=== PATIENT | female | born 1990 | race Caucasian/White ===

== ENCOUNTER 2020-12-16 00:56 | Emergency (ER) | payer OTHER, MEDICAID, SELFPAY ==
[2020-12-16 01:08] VITALS: BP 131/87; PULSE 118; RESP 20; TEMP 36.2; O2SAT 100
[2020-12-16] MEDS: LIDO 1%/SOD BICARB 8.4% (10ML) 10 ML SYRINGE INJ (01:14)
--- NOTE | 2020-12-16 01:29 | ED_ITS ---
HPI - General Adult General Chief complaint: Skin/Abscess/Foreign Body Stated complaint: possible abcesses on upper left arm right wrist Time Seen by Provider: 12/16/20 00:58 Source: patient Mode of arrival: Ambulatory Limitations: no limitations History of Present Illness HPI narrative: Patient is a 30-year-old female. She admits to being an IV drug user. States that a couple days ago she when she tried to inject herself in her left arm. States since that she has had redness and swelling and discomfort. She has never had an abscess like this in the past she stated that at home she drained ?30 cc ?of purulent material out of the redness and swelling prior to arrival however she thinks that symptoms are worsening. She also has a similar but smaller abscess forming on her right forearm. She has not attempted to drain anything from this. She states that with these are from injecting heroin. Related Data Allergies Allergy/AdvReac Type Severity Reaction Status Date / Time No Known Drug Allergies Allergy Verified 12/16/20 01:14 Review of Systems Constitutional Constitutional: Denies fever(s) Cardiovascular Cardiovascular: Denies chest pain and Denies dyspnea Respiratory Respiratory: Denies dyspnea Gastrointestinal Gastrointestinal: Denies abdominal pain Musculoskeletal Musculoskeletal: Denies tingling Integumentary/Breasts Skin/Breast: Reports lesions and Reports erythema Neurologic Neurologic: Denies tingling Hematologic/Lymphatic On Anticoagulants: No Allergic/Immunologic Allergic/Immunologic: Denies urticaria Patient History Medical History IV drug abuse Social History Smoking Status: Former smoker Smoking Status: Former smoker Substance Use Type: heroin Exam Initial Vital Signs Initial Vital Signs: Vital Signs Temperature 97.1 F L 12/16/20 01:08 Pulse Rate 118 H 12/16/20 01:08 Respiratory Rate 20 12/16/20 01:08 Blood Pressure 131/87 12/16/20 01:08 Pulse Oximetry 100 12/16/20 01:08 Const General: cooperative Limitations: mental status not altered HENNM Head: normal to inspection and normocephalic Cardio Pulses: radial pulses present bilaterally Skin Other: Patient with a 1 cm x 2 cm abscess on the right forearm the distal l 1/3 without any surrounding erythema. Patient has a larger 5 cm x 5 cm area of redness and abscess on the left forearm on the proximal 1/3. Extrem General: capillary refill normal Procedures Abscess I/D I&D #1: Site: upper extremity Side (if applicable): right Local Anesthetic: lidocaine 1% and with bicarb Amount of anesthesia used (mL): 4 Technique: incised with #11 blade Irrigation: No Packing used?: none I&D #2: Site: upper extremity Side (if applicable): left Local Anesthetic: lidocaine 1% and with bicarb Amount of anesthesia used (mL): 6 Technique: incised with #11 blade Irrigation: No Packing used?: none Course Orders Ordered: Discontinued Medications Diphtheria/Tetanus/Acell Pertussis (Tet,Diph,Pertuss(Acell),Vac/Pf 0.5 Ml Syringe) 0.5 ml IM .ONCE ONE Stop: 12/16/20 01:31 Last Admin: 12/16/20 01:35 Dose: 0.5 ml Documented by: SHRUTHI Lidocaine/Sodium Bicarbonate (Lido 1%/Sod Bicarb 8.4% (10ml) 10 Ml Syringe) 10 ml INJ NOW ONE Stop: 12/16/20 01:07 Last Admin: 12/16/20 01:14 Dose: 10 ml Documented by: BRETT Vital Signs Vital signs: Vital Signs - 8 hr 12/16/20 01:08 12/16/20 01:49 Temperature 97.1 F L Pulse Rate 118 H 94 H Respiratory Rate 20 18 Blood Pressure 131/87 119/79 Pulse Oximetry 100 99 Medical Decision Making MDM Narrative Medical decision making narrative: Bedside ultrasound was used to confirm that both of the areas in question or abscesses. After anesthesia provided they both were drained with return of purulent material. There was no foreign bodies noted. There was minimal if any surrounding erythema from these abscesses so I feel that holding on antibiotics is warranted. Patient was given care instructions and return precautions. Patient not septic. Her tachycardia secondary to her anxiety related to the situation and she admits this. Her tetanus was also updated. Discharge Plan Departure Patient Disposition: Home Clinical Impression: Abscess of skin or subcutaneous tissue Instructions: DI for Incision and Drainage of a Skin Abscess, DI for Skin Abscess Activity Restrictions/Additional Instructions: Your tetanus shot was updated today. Expect oozing from the sites on both of your arms. This should improve over the next couple days. Keep it covered with a bandage as needed. You can shower like normal. You can use soap and water like normal. If you do not have a primary provider you can contact [phone]. This is the health resource conservation manager here at the hospital. Return to the emergency department for any new or worsening symptoms
[2020-12-16] MEDS: TET,DIPH,PERTUSS(ACELL),VAC/PF 0.5 ML SYRINGE IM (01:35)
[2020-12-16 01:49] VITALS: BP 119/79; PULSE 94; RESP 18; O2SAT 99
== END 2020-12-16 01:51 | disposition home or self-care (01) ==
PROVIDERS: Emergency Provider Emergency Medicine
DX: L02.414 Cutaneous abscess of left upper limb (principal); L02.413 Cutaneous abscess of right upper limb; Z23 Encounter for immunization; F19.10 Other psychoactive substance abuse, uncomplicated
CPT/HCPCS: 10061; 99281; 99283; 90715

== ENCOUNTER 2021-06-28 20:47 | Emergency (ER) | payer OTHER, MEDICAID, SELFPAY ==
[2021-06-28 21:04] VITALS: BP 135/86; PULSE 103; RESP 16; TEMP 36.7; O2SAT 100; BMI 25.0
[2021-06-29 01:30] VITALS: BP 137/87; PULSE 96; RESP 18; O2SAT 98
[2021-06-29] MEDS: CLINDAMYCIN 150 MG CAPSULE 300 MG PO (02:37)
[2021-06-29] MEDS: TRIMETH/SULFA 160/800 (DS) TABLET 1 TAB PO (02:37)
[2021-06-29 02:43] VITALS: BP 131/81; PULSE 92; RESP 18; O2SAT 97
--- NOTE | 2021-06-29 02:45 | ED.GENADULT ---
HPI - General Adult General Chief complaint: Extremity Injury, Upper Stated complaint: abscess, rt forearm Time Seen by Provider: 06/29/21 02:18 Source: patient Mode of arrival: Ambulatory Limitations: no limitations History of Present Illness HPI narrative: 31-year-old woman with opioid use disorder presents with right forearm swelling and drainage with concerns for abscess. She reports no systemic concerns such as fever, cough, chills, body aches. She has not had orthopnea, dyspnea, palpitations. She notes that in the past she had a 6 year. Of freedom from IV drug use with the help of Suboxone. With recent stressors over the last year and half she had a return to use but is very interested in getting back to Suboxone and away from IV heroin. Related Data Previous Rx's Medication Instructions Recorded buprenorphine 8 mg-naloxone 2 mg 2 tab SUBLINGUAL DAILY #14 tab 06/29/21 sublingual tablet clindamycin HCl 300 mg capsule 300 mg PO TID #21 cap 06/29/21 sulfamethoxazole 800 1 tab PO BID #14 tab 06/29/21 mg-trimethoprim 160 mg tablet (Bactrim DS) Allergies Allergy/AdvReac Type Severity Reaction Status Date / Time No Known Drug Allergies Allergy Verified 12/16/20 01:14 Review of Systems Review of Systems Narrative: Remainder of complete review of systems is otherwise unremarkable except for that included in the HPI. Patient History Medical History IV drug abuse Social History Smoking Status: Former smoker Smoking Status: Former smoker Substance Use Type: heroin and IV drugs Exam Narrative Exam Narrative: General: Alert appropriate in no acute distress Respiratory: Able to speak in full sentences, no obvious respiratory distress Skin: No obvious rashes, warm and dry Neurologic: Grossly intact no obvious asymmetries or abnormalities Psych: appropriate insight and affect, cooperative Extremity: Hands are hyperemic from chronic IV drug use. Right forearm is somewhat more swollen than the left with minor erythema. There is a drainage site on the volar surface of the forearm with mild continued drainage. No obvious fluctuance or abscess continues at this point. Initial Vital Signs Initial Vital Signs: Vital Signs Temperature 98.1 F 06/28/21 21:04 Pulse Rate 103 H 06/28/21 21:04 Respiratory Rate 16 06/28/21 21:04 Blood Pressure 135/86 06/28/21 21:04 Pulse Oximetry 100 06/28/21 21:04 Course Orders Ordered: Discontinued Medications Clindamycin HCl (Clindamycin 150 Mg Capsule) 300 mg PO NOW ONE Stop: 06/29/21 02:34 Last Admin: 06/29/21 02:37 Dose: 300 mg Documented by: SHRUTHI Trimethoprim/Sulfamethoxazole (Trimeth/Sulfa 160/800 (Ds) Tablet) 1 tab PO NOW ONE Stop: 06/29/21 02:34 Last Admin: 06/29/21 02:37 Dose: 1 tab Documented by: SHRUTHI Vital Signs Vital signs: Vital Signs - 8 hr 06/28/21 21:04 06/29/21 01:30 Temperature 98.1 F Pulse Rate 103 H 96 H Respiratory Rate 16 18 Blood Pressure 135/86 137/87 Pulse Oximetry 100 98 Medical Decision Making MDM Narrative Medical decision making narrative: 31-year-old woman with opioid use disorder. Abscess to the right forearm has essentially drained itself and does not need any further intervention. I will place her on 7 days of antibiotics both Septra and clindamycin given the size and depth of the abscess. She is also very interested in returning to Suboxone. She had been on 16 mg initially with her prior success. She lives in [place] typically goes to the [facility]. She is given a prescription for 1 week of Suboxone along with refresher on its use and contraindications to taking it too soon to heroin use. She will be following up with [facility]. She is safe for home discharge Discharge Plan Departure Patient Disposition: Home Clinical Impression: Opioid use disorder, Cellulitis and abscess of upper arm and forearm Instructions: DI for Skin Abscess Activity Restrictions/Additional Instructions: Thank you for coming in this evening The abscess looks like it has fairly effectively drained itself and does not need me to do any additional cutting. I would encourage you to keep soaking your elbow to allow any additional drainage. I would like you to complete 7 days of clindamycin and Bactrim, both antibiotics that will help this heal more efficiently. I am encouraged that you are considering getting back to sobriety and back to Suboxone. I have given you a prescription for 16 mg of Suboxone daily to last for a week. We talked about beginning with just a quarter of a strip when you feel that you are in fairly severe withdrawal. If that quarter of a strip does not cause any worsening symptoms you can continue with more up to 16 mg daily. Please make sure you have an appointment with [facility] set up so that you can have this prescription continued If you have worsening symptoms regarding your abscess, fevers chills or your arm continues to swell, please return to the ER I wish you the best in getting your life back Prescriptions: New clindamycin HCl 300 mg capsule 300 mg PO TID Qty: 21 RF: 0 sulfamethoxazole-trimethoprim [Bactrim DS] 800-160 mg tablet 1 tab PO BID Qty: 14 RF: 0 buprenorphine-naloxone 8-2 mg tablet, sublingual 2 tab sublingual DAILY Qty: 14 RF: 0
== END 2021-06-29 02:51 | disposition home or self-care (01) ==
PROVIDERS: Emergency Provider Emergency Medicine
DX: L02.413 Cutaneous abscess of right upper limb (principal); L03.113 Cellulitis of right upper limb; F11.10 Opioid abuse, uncomplicated
CPT/HCPCS: 99283